=== PATIENT | male | born 1955 | race Caucasian/White ===

== ENCOUNTER 2020-05-05 10:17 | Emergency (ER) | payer MEDICAID ==
--- NOTE | 2020-05-05 10:22 | EDM.PDOC ---
ED HPI GENERAL MEDICAL PROBLEM - General Stated Complaint: POSSIBLE BROKEN RIBS Time Seen by Provider: 05/05/20 10:19 - History of Present Illness INITIAL COMMENTS - FREE TEXT/NARRATIVE: History of present illness: [] Patient is here with severe left chest pain and trouble breathing. He fell 2 nights ago. He thinks he might of broken ribs. He fell against his left chest. The pain is gradually increased since. The difficulty breathing is greatly increased since. Now the pain is excruciating and worse when he takes a deep breath. Associated with dyspnea. The patient does not have any heart or lung disease. The patient does smoke. Review of systems: As per history of present illness and below otherwise all systems reviewed and negative. Past medical history: As per history of present illness and as reviewed below otherwise noncontribu tory. Surgical history: As per history of present illness and as reviewed below otherwise noncontributory. Social history: No reported history of drug or alcohol abuse. Family history: As per history of present illness and as reviewed below otherwise noncontributory. Physical exam: Constitutional - well developed, well-nourished and in moderate acute distress HEENT - normocephalic, no evidence of trauma - external nose and mouth normal - no mass in neck and no JVD - mucosae moist EYES - full EOM, PERRL, no icterus - no evidence of inflammation, injection, or drainage Respiratory -there is tenderness to the left anterior axillary line in the left mid axillary line in the mid thoracic area around interspace 567. There is referred tenderness when palpating the left upper quadrant of the abdomen but no significant abdominal tenderness. Moderate respiratory distress, equal bilateral expansion, lungs clear to auscultation and no abnormal lung sounds Cardiovascular - Regular Rhythm with S1 and S2 appreciated and no murmur, gallop or rub. GI - abdomen soft without distension or organomegaly - normal bowel sounds - no guard or rebound Musculoskeletal no gross deformity of long bones or joints - no tenderness, swelling or edema Neurologic - Alert and oriented times four - CN II-XII grossly intact - motor sensory and coordination symmetrically normal Psychiatric - appropriate mood and affect with normal thought content Hematologic - No petechiae or purpura - mucosa appropriate color and sclera not pale - normal nail bed color and refill Integument - no rash or evidence of trauma - normal turgor Diagnostics: [] Therapeutics: [] Impression: [] Plan: [] Definitive disposition and diagnosis as appropriate pending reevaluation and review of above. L lower breast Pain Score (Numeric/FACES): 9 - Related Data Allergies Allergy/AdvReac Type Severity Reaction Status Date / Time No Known Allergies Allergy Verified 05/05/20 10:30 Home Meds: Home Meds Acetaminophen/HYDROcodone [Powell 325-7.5 MG] 1 - 2 tab PO Q6H PRN #12 tab 05/05/20 [Rx] Gabapentin [Neurontin] 300 mg PO DAILY 05/05/20 [History] Lisinopril/Hydrochlorothiazide [Lisinopril-HCTZ 10-12.5 MG] 10 - 12.5 mg PO DAILY 05/05/20 [History] ED ROS GENERAL - Review of Systems Review Of Systems: Comprehensive ROS is negative, except as noted in HPI. ED EXAM, GENERAL - Physical Exam Exam: See Below Free Text/Narrative:: My physical exam is in the HPI #1 Interpretation EKG Interpretation Comments: EKG done at 10:24 AM and read at 1029 this is a sinus rhythm with heart rate of 73 and a NV interval 159. QT is 443 and the axis is 63. Intraventricular conduction delay with a QRS duration of 123 ms. There is no prior for comparison impression no obvious acute injury Course - Vital Signs Text/Narrative:: Life-threatening pneumothorax was ruled out by chest x-ray. He has 1/5 rib fracture slightly displaced. There may be an anterior sixth rib fracture that is a tiny cortical disruption. Otherwise the lung is well expanded. The patient shows the deep breathing and tolerate the pain with prescription for pain medicine rather than an intercostal block or a spirometer. Last Recorded V/S: Last Vital Signs Temp 36.4 C 05/05/20 10:24 Pulse 80 05/05/20 10:24 Resp 18 05/05/20 10:24 BP 161/95 H 05/05/20 10:24 Pulse Ox 96 05/05/20 10:24 - Orders/Labs/Meds Meds: Medications Discontinued Medications Generic Name Dose Route Start Last Admin Trade Name Freq PRN Reason Stop Dose Admin Hydrocodone Bitart/Acetaminophen 1 tab 05/05/20 10:51 Powell 325-7.5 Mg PO 05/05/20 10:52 STAT STA Departure - Departure Time of Disposition: 10:54 Disposition: Home, Self-Care 01 Condition: Good Clinical Impression: Fracture, ribs - Discharge Information Prescriptions: Acetaminophen/HYDROcodone [Powell 325-7.5 MG] 1 - 2 tab PO Q6H PRN #12 tab PRN Reason: Pain (Severe 7-10) Instructions: Rib Fracture, [id number] Additional Instructions: [facility] - [facility] [address], [place] [address] [facility] [address] [place] [id number] The following information is given to patients seen in the emergency department who are being discharged to home. This information is to outline your options for follow-up care. We provide all patients seen in our emergency department with a follow-up referral. The need for follow-up, as well as the timing and circumstances, are variable depending upon the specifics of your emergency department visit. If you don't have a primary care physician on staff, we will provide you with a referral. We always advise you to contact your personal physician following an emergency department visit to inform them of the circumstance of the visit and for follow-up with them and/or the need for any referrals to a consulting specialist. The emergency department will also refer you to a specialist when appropriate. This referral assures that you have the opportunity for follow-up care with a specialist. All of these measure are taken in an effort to provide you with optimal care, which includes your follow-up. Under all circumstances we always encourage you to contact your private physician who remains a resource for coordinating your care. When calling for follow-up care, please make the office aware that this follow-up is from your recent emergency room visit. If for any reason you are refused follow-up, please contact the [facility] Emergency Department at and asked to speak to the emergency department charge nurse. Sepsis Event Note (ED) - Focused Exam Vital Signs: Vital Signs Temp Pulse Resp BP Pulse Ox 05/05/20 10:24 36.4 C 80 18 161/95 H 96
--- NOTE | 2020-05-05 10:44 | CR ---
Indication: Pain with inspiration on the left side after fall. Technique: AP portable view of the chest. Comparison: None Findings: The heart is normal in size. The lungs are clear. No infiltrate, pleural effusion, or pneumothorax is identified. Fractures of the left posterior fourth ribs is identified. A fracture of the lateral 6th rib is identified. Impression: Left rib fractures. No pneumothorax. Dictated by Elana Pittman MD @ May 05 2020 10:41AM Signed by Dr. Elana Pittman @ May 05 2020 10:43AM
[2020-05-05] MEDS ORDERED: Acetaminophen/HYDROcodone 325-7.5 MG Tab PO STA (10:51)
== END 2020-05-05 11:27 | disposition home or self-care (01) ==
LOC: MW.ED 10:17
DX: S22.42XA Multiple fractures of ribs, left side, initial encounter for closed fracture (principal); W19.XXXA Unspecified fall, initial encounter
CPT/HCPCS: 71045; 93005; 99283; A9270; 93010